=== PATIENT | male | born 1955 | race Caucasian/White ===

== ENCOUNTER 2017-10-03 00:22 | Day surgery (SDC) | payer BC ==
[~2017-10-03] VITALS: Ht 177.8 cm; Wt 82.1 kg
[~2017-10-03 00:22] MED LIST: AMOX875T60 PO; ATOR10TA24 PO; FEXO180T74 PO; LISI20TA29 PO; LOR5/325 PO; ROSU5TAB8 PO
--- NOTE | 2017-10-03 07:05 | Post Operative Progress Note ---
Post Operative Progress Note Date: October 03, 2017 Time: 11:08 Surgeon: mya Anesthesia: dr hernandez Pre-Op Diagnosis: heartburn Post-Op Diagnosis: normal Procedure(s): egd AGUSTIN CROFT MD October 03, 2017 07:05
--- NOTE | 2017-10-03 07:06 | Short(Outpt) Discharge Summary ---
Discharge Summary Reason for Hosp/Final Diag: (1) Heartburn Hospital Course & Plan: normal exam Departure Discharge to: Home Discharge Instructions Home Meds Reported Medications Rosuvastatin Calcium (CRESTOR) 5 Mg Tablet, 5 MG PO QDAY 10/01/17 Fexofenadine Hcl (HARINDER) 180 Mg Tablet, 180 MG PO DAILY 11/18/12 Lisinopril (LISINOPRIL) 20 Mg Tablet, 20 MG PO DAILY 11/18/12 Discontinued Reported Medications Hydrocodone Bit/Acetaminophen (HYDROCODON-ACETAMINOPHEN 5-325) 1 Each Tablet, 1 - 2 EACH PO Q4H Y, #40 11/20/12 Amoxicillin (AMOXICILLIN) 875 Mg Tablet, 1 TAB PO Q12H, #14 11/20/12 Atorvastatin Calcium (LIPITOR) 10 Mg Tablet, 1 TAB PO QPM TAKE ONE TABLET BY MOUTH ONCE A DAY AT BED TIME 11/18/12 Diet: Regular Activity: As Tolerated AGUSTIN CROFT MD October 03, 2017 07:06
[2017-10-03] MEDS ORDERED: PROPOFOL EMUL(*) 10MG/ML 20 ML 40 ML ONE (07:12)
[2017-10-03 09:13] VITALS: BP 126/82
[2017-10-03] MEDS ORDERED: LIDOCAINE/SOD BICARB 8.4% SYR ID ONE (09:40)
[2017-10-03] MEDS ORDERED: NORMOSOL R SOLN(*) 1000 ML BAG 1,000 ML IV PRN (09:40)
[2017-10-03 11:08] VITALS: BP 104/64
[2017-10-03 11:26] VITALS: BP 106/69
[2017-10-03 11:41] VITALS: BP 109/77
[2017-10-03 11:42] VITALS: BP 112/85
--- NOTE | 2017-10-03 16:59 | OPERATIVE REPORT 1 ---
EVENT DATE: October 03, 2017 SURGEON: Zachary Kramer MD ANESTHESIOLOGIST: Sunny Luevano MD ANESTHESIA: Sedation. PREOPERATIVE DIAGNOSIS Heartburn. POSTOPERATIVE DIAGNOSIS Normal-appearing esophagogastroduodenoscopy. PROCEDURE PERFORMED Esophagogastroduodenoscopy. DESCRIPTION OF PROCEDURE Patient was placed in left lateral decubitus position and given intravenous sedation. Flexible gastroscope was inserted and advanced without difficulty. Esophagus distended nicely all the way down. The GE junction was right at 40 cm. It was distinct. No ulceration, inflammation. No narrowing. No tightness. Scope fell through into stomach without problems. Stomach which was empty. We passed through the pylorus, second and third portions of the duodenum which were unremarkable. Duodenal bulb was normal. Pylorus was normal. Antrum and body of stomach were normal. Scope was retroflexed. There were no fundic lesions. I could not identify a hiatal hernia. We slowly went through the esophagus again, again noting no narrowings, inflammation, or irritation. Patient tolerated the procedure well. No apparent complications. [facility]
== END 2017-10-03 12:05 | disposition home or self-care (01) ==
LOC: OR 00:22
PROVIDERS: ATTEND Surgery
DX: R12 Heartburn (principal)
CPT/HCPCS: 43235; J2704